=== PATIENT | female | born 1980 | race Caucasian/White ===

== ENCOUNTER → 2017-07-05 10:51 | Outpatient (CLI) | payer OTHER, SELFPAY ==
[2017-07-05 12:19] LABS: Absolute Lymphocyte Count 1.41 X10^3/ul (0.83-4.51); Absolute Neutrophil Count 2.4 X10^3/uL (2.0-7.7); Basophil# 0.03 X10^3/uL; Basophil% 0.7 % (0-1); Eosinophil# 0.09 X10^3/uL; Eosinophils% 2.1 % (0-5); Hematocrit 35.5 % (37-47); Hemoglobin 11.2 g/dl (12.0-15.0); Lymphocyte # 1.41 X10^3/ul (4.0); Lymphocyte % 32.6 % (19-41); Mean Corp Hgb Conc 31.5 g/gl (32-36); Mean Corpuscular Hgb 28.3 pg (27.0-32.0); Mean Corpuscular Volume 89.6 fL (81-99); Mean Platelet Vol. 10.3 fl (6.2-12.0); Monocyte% 9.3 % (0-10); Neutrophil # 2.39 X10^3/uL (2.7-7.7); Neutrophil % 55.3 % (47-70); Platelet Count 298 K/mm3 (150-450); RBC Distribution Width CV 13.3 % (11.6-14.6); RBC Distribution Width SD 43.7 fl (35.1-43.9); Red Blood Count 3.96 M/mm3 (4.2-5.4); White Blood Count 4.3 K/mm3 (4.4-11.0)
[2017-07-05 12:26] LABS: POSITIVE COUNT NO; POSITIVE DIFFERENTIAL NO; POSITIVE MORPHOLOGY NO
[2017-07-05 12:36] LABS: Vitamin B12 529 pg/mL (211-911); Vitamin D,25 Hydroxy 11.3 ng/mL (29.95-100.01)
[2017-07-05 12:37] LABS: Ferritin 42 ng/mL (8-252); Iron 79 ug/dL (50-170); Iron Binding Capacity,Total 361 ug/dL (250-450); PERCENT IRON SATURATION 21.9 % (15.0-55.0); T4 Free Direct 0.87 ng/dL (0.76-1.46); Thyroid Stim Hormone (TSH) 2.24 uIU/mL (0.358-3.74)
== END ==
PROVIDERS: Family Provider Internal Medicine; PCP Internal Medicine; Visit Provider Nurse Practitioner Family
DX: R53.83 Other fatigue (principal); E55.9 Vitamin D deficiency, unspecified
CPT/HCPCS: 36415; 82306; 82607; 82728; 83540; 83550; 84439; 84443; 85025

== ENCOUNTER → 2019-12-24 08:26 | Outpatient (CLI) | payer OTHER, SELFPAY ==
--- NOTE | 2019-12-24 08:35 | RAD_ITS ---
STUDY: UPPER GI SERIES REASON FOR EXAM: Female, 39 years old. Stomach pain/SOB/swallowing difficulty 24 hours a day per pt. FLUOROSCOPY TIME (if supplied): (0:54) minutes/seconds TECHNIQUE: SINGLE CONTRAST FLUOROSCOPIC IMAGES. COMPARISON: None. FINDINGS: The cervical esophagus demonstrates normal motility without aspiration. There is no stricture or extrinsic mass effect. No intraluminal polypoid mass is identified. The thoracic esophagus distends well without stricture or mucosal fold thickening. No mucosal ulcerations are identified. There is no extrinsic mass effect. There are no diverticula. No hiatal hernia or gastroesophageal reflux was identified. The stomach distends well without mucosal fold thickening or mucosal ulceration. There is no intraluminal mass. The duodenal bulb is freely distensible without deformity or ulceration. The duodenal sweep is normal in position and caliber. RAD/Upper GI w/BA Swallow IMPRESSION: Normal upper GI series. Electronically Signed: Tyree Boone, at 12:53 EDT , Service support ,
--- NOTE | 2019-12-24 09:00 | RAD_ITS ---
STUDY: SMALL BOWEL FOLLOW-THROUGH EXAMINATION. REASON FOR EXAM: Female, 39 years old. Stomach pain/SOB/swallowing difficulty 24 hours a day per pt. FLUOROSCOPY TIME (if supplied): ( 24 seconds ) minutes/seconds. 8 images were obtained. TECHNIQUE: The patient ingested barium. A small bowel follow-through examination was then obtained. COMPARISON: None. FINDINGS: The small bowel loops are situated in the left side of the abdomen. There is no evidence of obstruction. The terminal ileum is unremarkable. RAD/Small Bowel Series Only IMPRESSION: No small bowel obstruction or abnormality is seen. The small bowel is in the left side of the abdomen. Electronically Signed: Tyree Boone, at 12:55 EDT , Service support ,
== END ==
LOC: RAD 08:27
PROVIDERS: PCP Family Medicine; Referring Provider Nurse Practitioner Family; Visit Provider Nurse Practitioner Family
DX: R10.13 Epigastric pain (principal); R13.14 Dysphagia, pharyngoesophageal phase
CPT/HCPCS: 74246; 74250